=== PATIENT | female | born 1985 | race Caucasian/White ===

== ENCOUNTER → 2021-07-05 | Outpatient (CLI) | payer BC, OTHER ==
[~2021-07-05] MED LIST: ATENOLOL25 MG PO; IBUPROFEN600 MG PO; LEVOTHYROXINE175 MC1 PO; LEXAPRO10 MG PO; LODINE CAP 300300 MG PO; OMEPRAZOLE40 MG PO; PERCOCET 5-3251 EACH PO; TAMIFLU75 MG PO; ZOFRAN 4 MG TAB4 MG PO; ZOFRAN ODT 4 MG4 MG PO
[2021-07-05 09:51] LABS: HEMOGLOBIN 13.8 gm/dl (12.3-15.3); RED BLOOD COUNT 4.67 M/UL (4.00-5.10); WHITE BLOOD COUNT 8.7 K/UL (4.5-11.0)
[2021-07-05 10:10] LABS: BUN/CREATININE RATIO 11 (0-10)
== END ==
LOC: OPSV2 09:00
PROVIDERS: Obstetrics & Gynecology
DX: Z01.818 Encounter for other preprocedural examination (principal); D28.2 Benign neoplasm of uterine tubes and ligaments
CPT/HCPCS: 36415; 80053; 81001; 85025; 93005

== ENCOUNTER → 2021-07-14 | Day surgery (SDC) | payer BC, OTHER | END | disposition home or self-care (01) | LOC: OR 05:21 | DX: D25.1 Intramural leiomyoma of uterus (principal); N80.0 Endometriosis of uterus; N72 Inflammatory disease of cervix uteri; N83.201 Unspecified ovarian cyst, right side; N93.9 Abnormal uterine and vaginal bleeding, unspecified; N92.0 Excessive and frequent menstruation with regular cycle; I10 Essential (primary) hypertension; G47.30 Sleep apnea, unspecified; E89.0 Postprocedural hypothyroidism; F41.9 Anxiety disorder, unspecified; Z79.899 Other long term (current) drug therapy; Z20.822 Contact with and (suspected) exposure to COVID-19; Z98.51 Tubal ligation status | CPT/HCPCS: J0690; J1100; J1170; J1885; J2001; J2250; J2405; J2704; J2710; J3010; J7120; U0002 ==